=== PATIENT | female | born 1960 | race American Indian/Alaskan Native ===

== ENCOUNTER 2016-11-27 00:51 | Emergency (ER) | payer MEDICARE ==
[2016-11-27 01:53] LABS: Basophils % (Auto) 0.7 % (0.0-1.8); Eosinophils % (Auto) 1.9 % (0.0-4.3); Hematocrit 40.3 % (30.3-42.9); Hemoglobin 13.6 gm/dl (10.1-14.3); Mean Corpuscular HGB Conc 34 % (30-34); Mean Corpuscular Hemoglobin 31 pg (28-32); Mean Corpuscular Volume 92 fl (79-97); Platelet Count 203 K/mm3 (140-440); Red Blood Count 4.41 M/mm3 (3.65-5.03); White Blood Count 10.2 K/mm3 (4.5-11.0)
[2016-11-27 02:11] LABS: Anion Gap 14 mmol/L; BUN/Creatinine Ratio 13.33; Blood Urea Nitrogen 8 mg/dL (7-17); Calcium 9.1 mg/dL (8.4-10.2); Carbon Dioxide 27 mmol/L (22-30); Chloride 98.4 mmol/L (98-107); Glucose 112 mg/dL (65-100); Potassium 3.8 mmol/L (3.6-5.0); Sodium 136 mmol/L (137-145)
[2016-11-27 02:15] LABS: Urine Drugs of Abuse Note Disclamer
[2016-11-27 02:22] LABS: Bilirubin,Urine NEG (Negative); Blood,Urine NEG (Negative); Ketones,Urine TR mg/dL (Negative); Leukocyte Esterase,Urine TR (Negative); Mucus,Urine FEW /HPF; Nitrite,Urine NEG (Negative); Protein,Urine <15 mg/dL mg/dL (Negative); Urobilinogen,Urine < 2.0 mg/dL (<2.0)
--- NOTE | 2016-11-27 04:43 | Emergency Department Report ---
HPI - General Chief Complaint: Psych Time Seen by Provider: 11/27/16 02:53 - HPI HPI: The patient is a 56 yo female with a history of schizophrenia, presents for evaluation of mental health. The patient states that the baby doll present with her is her actual child that she delivered the child vaginally. The patient admits to hearing voices. The patient denies fever, headache, unexplained weight loss or weight gain, heat or cold intolerance, skin, hair, or nail changes, neuro deficits. ED Past Medical Hx - Past Medical History Previous Medical History?: Yes Hx Diabetes: Yes - Surgical History Past Surgical History?: Yes Additional Surgical History: Surgeries for optic nerve? - Social History Smoking Status: Current Some Day Smoker Substance Use Type: None ED Review of Systems ROS: Stated complaint: MEDICAL CLEARANCE Other details as noted in HPI Constitutional: denies: fever ENT: denies: throat or neck pain Respiratory: denies: cough, shortness of breath Cardiovascular: denies: chest pain Endocrine: denies unexplained weight loss or gain Gastrointestinal: denies: abdominal pain, nausea Genitourinary: denies: dysuria Musculoskeletal: denies: leg swelling Skin: denies: rash Neurological: denies: headache Hematological/Lymphatic: denies: easy bleeding or easy bruising Psych: denies sadness or hopelessness reports hallucinations Physical Exam - Physical Exam Vital Signs: Vital Signs 11/27/16 11/27/16 01:03 01:05 Temperature 98.2 F Pulse Rate 89 Respiratory 16 18 Rate Blood Pressure 148/85 Blood Pressure 148/85 [Left] O2 Sat by Pulse 96 98 Oximetry Physical Exam: General: well-nourished, well-developed, no acute distress Head: Normocephalic, atraumatic Eyes: normal sclera ENT: Mucous membranes are pink and moist Neck: trachea midline, neck supple, No neck stiffness, no cervical adenopathy Respiratory: Breath sounds equal bilaterally, no wheezing, rales, or rhonchi Cardio: S1 and S2 present, no murmurs, rubs, gallops, capillary refill is brisk Abdomen: Normoactive bowel sounds, soft abdomen, no rigidity, no guarding or rebound tenderness Musc: No pitting edema Skin: No rash Neuro: no facial drooping, normal speech Psych: Flat affect, patient delusional, poor insight, positive hallucinations ED Course Vital Signs 11/27/16 11/27/16 01:03 01:05 Temperature 98.2 F Pulse Rate 89 Respiratory 16 18 Rate Blood Pressure 148/85 Blood Pressure 148/85 [Left] O2 Sat by Pulse 96 98 Oximetry ED Medical Decision Making - Lab Data Result diagrams: 11/27/16 01:40 11/27/16 01:40 - Medical Decision Making The patient was seen and examined by myself. The patient is placed on a healthcare technician and continuous pulse ox. On initial evaluation, the patient was found to be in no distress. Labs are obtained. Lab results are grossly unremarkable. The patient is medically clear. Mental health is consulted. Mental health evaluates the patient and agrees that the patient is positive for findings consistent with acute psychosis. A 1013 is completed. The patient will be admitted to a psychiatric facility once bed placement is obtained Critical care attestation.: If time is entered above; I have spent that time in minutes in the direct care of this critically ill patient, excluding procedure time. ED Disposition Condition: Stable Referrals: PRIMARY CARE [Primary Care Provider] - 3-5 Days
--- NOTE | 2016-11-27 08:35 | Consultation ---
History of Present Illness - Reason for Consult Consult date: 11/27/16 Reason for consult: aucte psychosis - History of Present Psychiatric Illness This is a 56 year old disabled and domiciled female with PMH of DM and PPH of schizophrenia who was brought into [facility] by law enforcement at the request of her caregiver for disorganized behaviors. Per review of ER records, the patient was unable to narrate the reason for her presentation and was perseverating on a memory of her child birthing and child rearing experience. On my examination, she was aware of her surrounding, but had a disorganized and perseverative thought process. She denied AH and sleep disturbances as well as SI. She also denied symptoms of elroy at this time. Medications and Allergies Allergies Allergy/AdvReac Type Severity Reaction Status Date / Time No Known Allergies Allergy Unverified 11/27/16 01:13 Mental Status Exam - Vital signs Last Vital Signs Temp 98.2 F 11/27/16 01:03 Pulse 89 11/27/16 01:03 Resp 18 11/27/16 01:05 BP 148/85 11/27/16 01:03 Pulse Ox 98 11/27/16 01:05 - Exam Orientation: time, place Affect: anxious Mood: calm Thought content: obsessions Thought Process: Loose Associations, Disorganized Perceptions: none Speech: normal rate and pattern Concentration: distractible Motor activity: normal Level of consciousness: alert Memory: Intact Sleep Symptoms: None Interaction: cooperative Results Result Diagrams: 11/27/16 01:40 11/27/16 01:40 Abnormal lab results 11/27/16 11/27/16 Range/Units 01:40 01:40 Lymph % (Auto) 38.0 H (13.4-35.0) % Pender % (Auto) 9.3 H (0.0-7.3) % Pender # 0.9 H (0.0-0.8) K/mm3 Sodium 136 L (137-145) mmol/L Creatinine 0.6 L (0.7-1.2) mg/dL Glucose 112 H (65-100) mg/dL All other labs normal. Assessment and Plan Assessment and plan: Impression: Possible psychotic episode related to her Schizophrenia Plan: Restart haloperidol 5 mg po qhs Transfer to inpatient psychiatric facility when a bed is available
[2016-11-27 15:15] VITALS: BP 135/68
[2016-11-27] MEDS ORDERED: HALDOL PO SCH (22:00)
== END 2016-11-27 16:39 ==
LOC: EEVIPCON 00:51 → ED 00:51
DX: Z00.8 Encounter for other general examination (principal); E11.9 Type 2 diabetes mellitus without complications; Z72.0 Tobacco use
CPT/HCPCS: 36415; 80048; 80307; 81001; 81025; 85025; 99285; G0480; 80320

== ENCOUNTER 2017-02-26 11:38 | Emergency (ER) | payer MEDICARE ==
--- NOTE | 2017-02-26 12:21 | Emergency Department Report ---
Entered by ROSIO COATS, acting as scribe for JJ KAPOOR NP. Chief Complaint: Psych Stated Complaint: MH EVALUATION Time Seen by Provider: 02/26/17 12:02 - HPI History of Present Illness: 57 y/o female, presents to ED via EMS. Patient states she does not know why she was brought in. EMS reports she has been hiding her medication. Patient denies SI. Patient is carrying and talking to a baby doll - ROS Review of Systems: + rash - Exam Vital Signs: Vital Signs 02/26/17 12:05 Temperature 98.8 F Pulse Rate 95 H Respiratory 18 Rate Blood Pressure 172/108 O2 Sat by Pulse 98 Oximetry Physical Exam: GENERAL: The Patient is alert, flighty. Skin: Rash to LUE MSE screening note: Focused history and physical exam performed. Due to findings the following was ordered: labs, mhe ED Disposition for MSE Condition: Stable This documentation as recorded by the scribe,ROSIO COATS,accurately reflects the service I personally performed and the decisions made by me,JJ KAPOOR, EDI.
[2017-02-26 12:36] LABS: Basophils % (Auto) 0.8 % (0.0-1.8); Eosinophils % (Auto) 1.1 % (0.0-4.3); Hematocrit 44.3 % (30.3-42.9); Hemoglobin 14.6 gm/dl (10.1-14.3); Mean Corpuscular HGB Conc 33 % (30-34); Mean Corpuscular Hemoglobin 31 pg (28-32); Mean Corpuscular Volume 94 fl (79-97); Platelet Count 227 K/mm3 (140-440); Red Blood Count 4.69 M/mm3 (3.65-5.03); Red Cell Distribution Width 13.1 % (13.2-15.2); White Blood Count 11.9 K/mm3 (4.5-11.0)
[2017-02-26 13:28] LABS: Alanine Aminotransferase 7 units/L (7-56); Albumin 3.8 g/dL (3.9-5); Albumin/Globulin Ratio 0.9 %; Alkaline Phosphatase 72 units/L (35-129); Anion Gap 19 mmol/L; Blood Urea Nitrogen 18 mg/dL (7-17); Calcium 8.9 mg/dL (8.4-10.2); Carbon Dioxide 24 mmol/L (22-30); Chloride 102.4 mmol/L (98-107); Glucose 105 mg/dL (65-100); Potassium 4.3 mmol/L (3.6-5.0); Sodium 141 mmol/L (137-145); Total Protein 8.2 g/dL (6.3-8.2)
[2017-02-26 13:45] LABS: Urine Drugs of Abuse Note Disclamer
[2017-02-26 14:14] LABS: Bilirubin,Urine NEG (Negative); Blood,Urine NEG (Negative); Ketones,Urine TR mg/dL (Negative); Leukocyte Esterase,Urine NEG (Negative); Mucus,Urine FEW /HPF; Nitrite,Urine NEG (Negative)
--- NOTE | 2017-02-26 18:46 | Emergency Department Report ---
ED Psych HPI - General Chief Complaint: Psych Stated Complaint: MH EVALUATION Time Seen by Provider: 02/26/17 12:02 Source: patient Mode of arrival: Ambulatory Limitations: No Limitations - History of Present Illness Initial Comments: 57 year old female the past medical history diabetes, [place], htn, and schizophrenia presents to the hospital from [place] for hiding meds and making threats to harm herself 1 week. She is acutely psychotic but is pleasant and cooperative in the ED. She has a baby doll with her and states it is her baby and that [id number] daughter just.. Patient has multiple bumps on her extremities that are pruritic. She denies suicidal or homicidal ideation here contrary to previous report from [place]. Patient also states she is compliant with her medication. No physical complaints reported other than rash - Related Data Allergies Allergy/AdvReac Type Severity Reaction Status Date / Time No Known Allergies Allergy Verified 02/26/17 12:04 ED Review of Systems ROS: Stated complaint: MH EVALUATION Other details as noted in HPI Comment: All other systems reviewed and negative Other: Constitutional: No fevers chills Eyes: No eye pain visual changes ENT: No ear pain or throat pain Neck: Denies pain Respiratory: Denies cough wheezing shortness of breath Cardiovascular: Denies chest pain, palpitations, syncope GI: Denies abdominal pain, nausea, vomiting, diarrhea : Denies dysuria Musculoskeletal: Denies back pain, Skin: As per H Neurologic: Denies headache, numbness, weakness Psychiatric: As per HPI ED Past Medical Hx - Past Medical History Previous Medical History?: Yes Hx Hypertension: Yes Hx Heart Attack/AMI: Yes Hx Diabetes: Yes Hx Psychiatric Treatment: Yes (SCHIZOPHRENIA) - Surgical History Past Surgical History?: No Additional Surgical History: Surgeries for optic nerve? - Social History Smoking Status: Current Every Day Smoker Substance Use Type: Prescribed ED Physical Exam - General Limitations: No Limitations - Other Other exam information: General: No limitations, patient is alert in no acute distress Head exam: Atraumatic, normocephalic Eyes exam: Normal appearancect ENT: Moist mucous membrane, normal oropharynx Neck exam: Normal inspection, full range of motion Respiratory exam: Clear to auscultation bilateral, no wheezes, rales, crackles Cardiovascular: Normal rate and rhythm Abdomen: Soft, nondistended, and nontender, with normal bowel sounds, no rebound, or guarding Extremity: Full range of motion normal inspection no deformity Back: Normal Inspection, full range of motion, no tenderness Neurologic: Alert, oriented x3, cranial nerves intact, no motor or sensory deficit Psychiatric: Cooperative, positive psychosis Skin: Papular pruritic rash with excoriations to bilateral arms and legs. No burrring between web spaces ED Course Vital Signs 02/26/17 02/26/17 12:05 14:59 Temperature 98.8 F Pulse Rate 95 H Respiratory 18 Rate Blood Pressure 172/108 Blood Pressure 139/79 [Left] O2 Sat by Pulse 98 Oximetry ED Medical Decision Making - Lab Data Result diagrams: 02/26/17 12:21 02/26/17 12:21 Lab Results 02/26/17 02/26/17 02/26/17 Range/Units 12:21 12:21 12:21 WBC 11.9 H (4.5-11.0) K/mm3 RBC 4.69 (3.65-5.03) M/mm3 Hgb 14.6 H (10.1-14.3) gm/dl Hct 44.3 H (30.3-42.9) % MCV 94 (79-97) fl MCH 31 (28-32) pg MCHC 33 (30-34) % RDW 13.1 L (13.2-15.2) % Plt Count 227 (140-440) K/mm3 Lymph % (Auto) 23.9 (13.4-35.0) % Lamar % (Auto) 7.8 H (0.0-7.3) % Eos % (Auto) 1.1 (0.0-4.3) % Baso % (Auto) 0.8 (0.0-1.8) % Lymph # 2.8 (1.2-5.4) K/mm3 Lamar # 0.9 H (0.0-0.8) K/mm3 Eos # 0.1 (0.0-0.4) K/mm3 Baso # 0.1 (0.0-0.1) K/mm3 Seg Neutrophils % 66.4 (40.0-70.0) % Seg Neutrophils # 7.9 H (1.8-7.7) K/mm3 Sodium 141 (137-145) mmol/L Potassium 4.3 (3.6-5.0) mmol/L Chloride 102.4 (98-107) mmol/L Carbon Dioxide 24 (22-30) mmol/L Anion Gap 19 mmol/L BUN 18 H (7-17) mg/dL Creatinine 0.5 L (0.7-1.2) mg/dL Estimated GFR > 60 ml/min BUN/Creatinine Ratio 36.00 % Glucose 105 H (65-100) mg/dL Calcium 8.9 (8.4-10.2) mg/dL Total Bilirubin 0.30 (0.1-1.2) mg/dL AST 10 (5-40) units/L ALT 7 (7-56) units/L Alkaline Phosphatase 72 (35-129) units/L Total Protein 8.2 (6.3-8.2) g/dL Albumin 3.8 L (3.9-5) g/dL Albumin/Globulin Ratio 0.9 % Urine Color (Yellow) Urine Turbidity (Clear) Urine pH (5.0-7.0) Ur Specific [place] (1.003-1.030) Urine Protein (Negative) mg/dL Urine Glucose (UA) (Negative) mg/dL Urine Ketones (Negative) mg/dL Urine Blood (Negative) Urine Nitrite (Negative) Urine Bilirubin (Negative) Urine Urobilinogen (<2.0) mg/dL Ur Leukocyte Esterase (Negative) Urine WBC (Auto) (0.0-6.0) /HPF Urine RBC (Auto) (0.0-6.0) /HPF U Epithel Cells (Auto) (0-13.0) /HPF Urine Mucus /HPF Salicylates < 0.3 L (2.8-20.0) mg/dL Urine Opiates Screen Urine Methadone Screen Acetaminophen (10.0-30.0) ug/mL Ur Barbiturates Screen Ur Phencyclidine Scrn Ur Amphetamines Screen U Benzodiazepines Scrn Urine Cocaine Screen U Marijuana (THC) Screen Drugs of Abuse Note Plasma/Serum Alcohol (0-0.07) gm% 02/26/17 02/26/17 02/26/17 Range/Units 12:21 12:21 13:30 WBC (4.5-11.0) K/mm3 RBC (3.65-5.03) M/mm3 Hgb (10.1-14.3) gm/dl Hct (30.3-42.9) % MCV (79-97) fl MCH (28-32) pg MCHC (30-34) % RDW (13.2-15.2) % Plt Count (140-440) K/mm3 Lymph % (Auto) (13.4-35.0) % Lamar % (Auto) (0.0-7.3) % Eos % (Auto) (0.0-4.3) % Baso % (Auto) (0.0-1.8) % Lymph # (1.2-5.4) K/mm3 Lamar # (0.0-0.8) K/mm3 Eos # (0.0-0.4) K/mm3 Baso # (0.0-0.1) K/mm3 Seg Neutrophils % (40.0-70.0) % Seg Neutrophils # (1.8-7.7) K/mm3 Sodium (137-145) mmol/L Potassium (3.6-5.0) mmol/L Chloride (98-107) mmol/L Carbon Dioxide (22-30) mmol/L Anion Gap mmol/L BUN (7-17) mg/dL Creatinine (0.7-1.2) mg/dL Estimated GFR ml/min BUN/Creatinine Ratio % Glucose (65-100) mg/dL Calcium (8.4-10.2) mg/dL Total Bilirubin (0.1-1.2) mg/dL AST (5-40) units/L ALT (7-56) units/L Alkaline Phosphatase (35-129) units/L Total Protein (6.3-8.2) g/dL Albumin (3.9-5) g/dL Albumin/Globulin Ratio % Urine Color Yellow (Yellow) Urine Turbidity Clear (Clear) Urine pH 5.0 (5.0-7.0) Ur Specific Sol[place] 1.028 (1.003-1.030) Urine Protein 30 mg/dl (Negative) mg/dL Urine Glucose (UA) Neg (Negative) mg/dL Urine Ketones Tr (Negative) mg/dL Urine Blood Neg (Negative) Urine Nitrite Neg (Negative) Urine Bilirubin Neg (Negative) Urine Urobilinogen 2.0 (<2.0) mg/dL Ur Leukocyte Esterase Neg (Negative) Urine WBC (Auto) 1.0 (0.0-6.0) /HPF Urine RBC (Auto) 3.0 (0.0-6.0) /HPF U Epithel Cells (Auto) 1.0 (0-13.0) /HPF Urine Mucus Few /HPF Salicylates (2.8-20.0) mg/dL Urine Opiates Screen Urine Methadone Screen Acetaminophen < 15.0 (10.0-30.0) ug/mL Ur Barbiturates Screen Ur Phencyclidine Scrn Ur Amphetamines Screen U Benzodiazepines Scrn Urine Cocaine Screen U Marijuana (THC) Screen Drugs of Abuse Note Plasma/Serum Alcohol < 0.01 (0-0.07) gm% 02/26/17 Range/Units 13:30 WBC (4.5-11.0) K/mm3 RBC (3.65-5.03) M/mm3 Hgb (10.1-14.3) gm/dl Hct (30.3-42.9) % MCV (79-97) fl MCH (28-32) pg MCHC (30-34) % RDW (13.2-15.2) % Plt Count (140-440) K/mm3 Lymph % (Auto) (13.4-35.0) % Lamar % (Auto) (0.0-7.3) % Eos % (Auto) (0.0-4.3) % Baso % (Auto) (0.0-1.8) % Lymph # (1.2-5.4) K/mm3 Lamar # (0.0-0.8) K/mm3 Eos # (0.0-0.4) K/mm3 Baso # (0.0-0.1) K/mm3 Seg Neutrophils % (40.0-70.0) % Seg Neutrophils # (1.8-7.7) K/mm3 Sodium (137-145) mmol/L Potassium (3.6-5.0) mmol/L Chloride (98-107) mmol/L Carbon Dioxide (22-30) mmol/L Anion Gap mmol/L BUN (7-17) mg/dL Creatinine (0.7-1.2) mg/dL Estimated GFR ml/min BUN/Creatinine Ratio % Glucose (65-100) mg/dL Calcium (8.4-10.2) mg/dL Total Bilirubin (0.1-1.2) mg/dL AST (5-40) units/L ALT (7-56) units/L Alkaline Phosphatase (35-129) units/L Total Protein (6.3-8.2) g/dL Albumin (3.9-5) g/dL Albumin/Globulin Ratio % Urine Color (Yellow) Urine Turbidity (Clear) Urine pH (5.0-7.0) Ur Specific [place] (1.003-1.030) Urine Protein (Negative) mg/dL Urine Glucose (UA) (Negative) mg/dL Urine Ketones (Negative) mg/dL Urine Blood (Negative) Urine Nitrite (Negative) Urine Bilirubin (Negative) Urine Urobilinogen (<2.0) mg/dL Ur Leukocyte Esterase (Negative) Urine WBC (Auto) (0.0-6.0) /HPF Urine RBC (Auto) (0.0-6.0) /HPF U Epithel Cells (Auto) (0-13.0) /HPF Urine Mucus /HPF Salicylates (2.8-20.0) mg/dL Urine Opiates Screen Presumptive negative Urine Methadone Screen Presumptive negative Acetaminophen (10.0-30.0) ug/mL Ur Barbiturates Screen Presumptive negative Ur Phencyclidine Scrn Presumptive negative Ur Amphetamines Screen Presumptive negative U Benzodiazepines Scrn Presumptive negative Urine Cocaine Screen Presumptive negative U Marijuana (THC) Screen Presumptive negative Drugs of Abuse Note Disclamer Plasma/Serum Alcohol (0-0.07) gm% - Medical Decision Making 1030 and transfer form has been signed. Differential for rash includes scabies , bedbugs, insect bites. I believe scabies is less likely given the lack of findings between web spaces. Patient can be treated for Benadryl when necessary itching. Patient is otherwise medically cleared for psychiatric transfer. Current psychiatric medications are unknown at this time. Awaiting psychiatric evaluation/consultation. Repeat blood pressure improved spontaneously without treatment - Differential Diagnosis schizophrenia, psychosis, medication noncompliance, suicidal thoughts Critical Care Time: No Critical care attestation.: If time is entered above; I have spent that time in minutes in the direct care of this critically ill patient, excluding procedure time. ED Disposition Clinical Impression: Schizophrenia, Psychosis, Medical clearance for psychiatric admission, Noncompliance with medication regimen, Suicidal thoughts Disposition: [id number]/TX-65 PSY HOSP/PSY UNIT Is pt being admited?: No Does the pt Need Aspirin: No Condition: Stable Time of Disposition: 18:48 (awaiting acceptance)
--- NOTE | 2017-02-27 14:44 | Consultation ---
History of Present Illness - Reason for Consult Consult date: 02/27/17 Reason for consult: psychiatric evaluation - Chief Complaint Chief complaint: "Females cause a lot of trouble" 57 year old female the past medical history diabetes, [place], htn, and schizophrenia presents to the hospital from [place] for hiding meds and making threats to harm herself 1 week.-per the record. Patient is unreliable informant. She is acutely psychotic/grossly disorganized. She is not aggressive. She has a baby doll with her and states it is her baby/-2-month-old daughter. Per the record, she denies suicidal or homicidal ideation here contrary to previous report from [place]. She also denied SI/HI during the psych eval. Patient also states she is compliant with her medication. She currently has a rash addressed by the ER physician. Medications and Allergies Allergies Allergy/AdvReac Type Severity Reaction Status Date / Time No Known Allergies Allergy Verified 02/26/17 12:04 Past psychiatric history - Past Medical History Past Medical History: other (unable to obtain) Past Surgical History: Other (unable to obtain) - past Psychiatric treatment and history Psych: Psychosis, Schizophrenia psychiatric treatment history: previous visits to [facility] indicate she previously took haldol 5mg hs - Social History Social history: other (lives in nursing home. no alcohol or substance abuse. negative etoh and uds) Mental Status Exam - Vital signs Last Vital Signs Temp 97.7 F 02/27/17 10:00 Pulse 91 H 02/27/17 10:00 Resp 18 02/27/17 10:00 BP 171/100 02/27/17 10:00 Pulse Ox 95 02/27/17 10:00 - Exam Orientation: place, person Affect: other (patient lying face down, would not make eye contact) Mood: other (indifferent) Thought content: delusions, other (no SI, no HI) Thought Process: Disorganized Perceptions: other (unable to obtain) Speech: pressured Concentration: unable to pay attention Motor activity: normal Level of consciousness: alert Interaction: pleasant Results Result Diagrams: 02/26/17 12:21 02/26/17 12:21 All other labs normal. Assessment and Plan Assessment and plan: Impression: psychosis Schizophrenia, unspecified Recommendation: 1013 and transfer to inpatient psychiatric facility Start haldol 5mg hs for psychosis and add cogentin 0.5mg hs for EPS prevention
[2017-02-27] MEDS ORDERED: COGENTIN PO SCH (22:00)
[2017-02-27] MEDS ORDERED: HALDOL PO SCH (22:00)
--- NOTE | 2017-02-28 09:39 | Progress Note ---
Subjective - Reason for Consult Consult date: 02/28/17 Reason for consult: Psychiatry Follow-up - Chief Complaint Chief complaint: "My doll is near" 57 year old female the past medical history diabetes, [place], htn, and schizophrenia presents to the hospital from [place] for hiding meds and making threats to harm herself 1 week.-per the record. Today patient is calm, cooperative, but delusional during assessment. She stated that she feel fine, but her doll isn't doing well. She stated her doll is 27 yrs old. She stated this same doll was 2 month old yesterday. Patient is disorganized in her speech. She denies SI/HI's, AVH's, and depression symptoms. She was observed eating her breakfast. Per the RN notes, patient was appropriate over night. Mental Status Exam - Vital signs Last Vital Signs Temp 98.1 F 02/27/17 20:50 Pulse 83 02/27/17 20:50 Resp 20 02/27/17 20:50 BP 172/85 02/27/17 20:50 Pulse Ox 96 02/27/17 20:50 - Exam Narrative exam: MSE: Appearance: calm, cooperative Behavior: poor eye contact, Speech: regular rate and tone Mood: "well" Affect: restricted Thought Process: tangential Thought Content: denies SI/HI's and AVH's, delusional, disorganized Motor Activity: ambulatory Cognition: A/Ox3 Insight: limited Judgment: limited Assessment and Plan Impression: Psychosis, Schizophrenia Unspecified. Today patient is calm, cooperative, but delusional during assessment. She stated that she feel fine, but her doll isn't doing well. She stated her doll is 27 yrs old. She stated this same doll was 2 month old yesterday. Patient is disorganized in her speech. Recommendation/Plan: Continue 1013 and transfer to inpatient psychiatric facility. Contiue Haldol 5mg PO HS for psychosis and Cogentin 0.5mg hs for EPS prevention.
[2017-02-28 19:33] VITALS: BP 132/78
== END 2017-02-28 19:35 ==
LOC: EEVIPCON 11:38 → ED 11:38
DX: F20.9 Schizophrenia, unspecified (principal); F29 Unspecified psychosis not due to a substance or known physiological condition; R22.43 Localized swelling, mass and lump, lower limb, bilateral; R22.33 Localized swelling, mass and lump, upper limb, bilateral; I10 Essential (primary) hypertension; F17.200 Nicotine dependence, unspecified, uncomplicated; I25.2 Old myocardial infarction; E11.9 Type 2 diabetes mellitus without complications; Z91.14 Patient's other noncompliance with medication regimen
CPT/HCPCS: 36415; 80053; 80307; 81001; 85025; 99285; G0480; 80320